=== PATIENT | male | born 1940 | race Caucasian/White ===

== ENCOUNTER → 2016-08-01 | Outpatient (CLI) | payer OTHER ==
[~2016-08-01] MED LIST: ASPI81TA82 PO; BACT800T5 PO; CEPH500C3 PO; NORV2.5T11 PO; SERT100 PO; SYMB160A INH
--- NOTE | 2016-08-05 09:31 | RSPPFT ---
DATE OF PROCEDURE: 08/01/16 COMMENTS: VOLUMES DYNAMIC: FVC and FEV1 moderately reduced. STATIC: TLC normal; FRC mildly increased; RV severely increased. FLOWS: FEV1% moderately reduced; FEF 25-75 severely reduced. DIFFUSION: Moderately reduced. FLOW VOLUME LOOP: Pattern of variable intrathoracic airways obstruction. IMPRESSION: Moderate to severe obstructive lung disease with reduction in diffusion and hyperinflation consistent with emphysema. Airways resistance is increased. There is significant improvement post-bronchodilator.
== END ==
LOC: PHRSP 10:05
PROVIDERS: ATTEND Internal Medicine
DX: J44.9 Chronic obstructive pulmonary disease, unspecified (principal)
CPT/HCPCS: 94060; 94620; 94726; 94729

== ENCOUNTER 2017-05-27 15:59 | Observation (INO) | payer OTHER ==
[~2017-05-27] VITALS: Ht 185.4 cm; Wt 73.3 kg
[2017-05-27] VITALS (9 sets, daily range): BP systolic 114–171; BP diastolic 62–79; PULSE 76–91; RESP 16–20; TEMP 98.3–101.9; O2SAT 94–98
[2017-05-27] MEDS ORDERED: ACETAMINOPHEN 325 MG TAB PO ONE (16:15)
[2017-05-27] MEDS: RESP: ALBUTEROL 2.5 MG/IPRATROPIUM 0.5 MG NEB (SCH) INH ×2 (16:27→19:18)
--- NOTE | 2017-05-27 16:29 | PD ---
HPI Chief Complaint: Respiratory Symptoms Time Seen by Provider: 16:02 Travel History International Travel<30 days: No Contact w/Intl Traveler<30days: No Traveled to known affect area: No History of Present Illness HPI 76-year-old male complains of fever, cough and congestion, wheezing and shortness of breath. Patient has history of COPD. Patient states that he has progressive shortness of breath for the past 3 months. Patient states that the symptoms got worse for the past week. Patient was seen by personal physician Dr. Troy Butt, is project manager during the past week. Patient states that he had chest x-ray done however does not know the results of that. Patient states that he was given prescription for antibiotic. Patient does not know the name of the antibiotic. Patient states that he has persistent symptoms despite taking the medication. Patient complains of intermittent left-sided chest wall pain sharp pain for the past several days. Patient states the pain is worse with deep inspiration. Patient denies abdominal pain. Patient denies any nausea vomiting diarrhea. EMS was called. Patient was given albuterol treatment 1 and Solu-Medrol 125 mg IV on with the ED. patient states that he uses albuterol nebulizer treatment at home about once a day or twice a day. Last albuterol treatment at home was last night. PFSH Past Medical History Depression: Yes COPD: Yes Diminished Hearing: No Hypertension: Yes Musculoskeletal: Yes Respiratory: Yes (COPD) Social History Alcohol Use: Yes (5-6BEER/DAY) Tobacco Use: No Substance Use: No Allergies-Medications (Allergen,Severity, Reaction): Coded Allergies: lorazepam (Unverified Allergy, Severe, AGGRESSIVE, 05/27/17) morphine (Unverified Allergy, Intermediate, RASH, 05/27/17) Reported Meds & Prescriptions Reported Meds & Active Scripts Active Reported Albuterol Neb (Albuterol Sulfate) Unknown Strength Neb Unknown Dose NEB Q4HR NEB PRN Aspirin EC (Aspirin) 81 Mg Tabdr 81 Mg PO DAILY [antibotic] Unknown Strength Unknown Dose PO BID Norvasc (Amlodipine Besylate) 2.5 Mg Tab 2.5 Mg PO DAILY Symbicort Inh (Budesonide/Formoterol Fumarate) 160-4.5 Mcg/Act Aero 2 Puff INH Q12HR Review of Systems General / Constitutional: No: Fever Eyes: No: Visual changes HENT: No: Headaches Cardiovascular: Positive: Chest Pain or Discomfort Respiratory: Positive: Cough, Shortness of Breath, Wheezing Gastrointestinal: No: Abdominal Pain Genitourinary: No: Dysuria Musculoskeletal: No: Pain Skin: No Rash Neurologic: No: Weakness Psychiatric: No: Depression Endocrine: No: Polydipsia Hematologic/Lymphatic: No: Easy Bruising Physical Exam Narrative GENERAL: Well-nourished, well-developed patient. SKIN: Focused skin assessment warm/dry. HEAD: Normocephalic. EYES: No scleral icterus. No injection or drainage. NECK: Supple, trachea midline. No JVD or lymphadenopathy. CARDIOVASCULAR: Regular rate and rhythm without murmurs, gallops, or rubs. RESPIRATORY: Breath sounds equal bilaterally. No accessory muscle use. Patient has moderate expiratory wheezes bilaterally. Patient has rhonchi bibasilar. GASTROINTESTINAL: Abdomen soft, non-tender, nondistended. MUSCULOSKELETAL: No cyanosis, or edema. BACK: Nontender without obvious deformity. No CVA tenderness. Neurologic exam normal. Data Data Last Documented VS Vital Signs Date Time Temp Pulse Resp B/P (MAP) Pulse Ox O2 Delivery O2 Flow Rate FiO2 05/27/17 16:33 83 20 98 Nasal Cannula 2.00 05/27/17 16:30 05/27/17 16:30 101.9 05/27/17 16:25 21 Orders Orders Complete Blood Count With Diff (05/27/17 16:08) Comprehensive Metabolic Panel (05/27/17 16:08) B-Type Natriuretic Peptide (05/27/17 16:08) Act Partial Throm Time (Ptt) (05/27/17 16:08) Prothrombin Time / Inr (Pt) (05/27/17 16:08) Urinalysis - C+S If Indicated (05/27/17 16:08) Influenzae A/B Antigen (05/27/17 16:08) Blood Culture (05/27/17 16:08) Iv Access Insert/Monitor (05/27/17 16:08) Electrocardiogram (05/27/17 16:08) Ecg Monitoring (05/27/17 16:08) Oximetry (05/27/17 16:08) Oxygen Administration (05/27/17 16:08) Chest, Single Ap (05/27/17 16:08) Sodium Chloride 0.9% Flush (Ns Flush) (05/27/17 16:15) Albuterol-Ipratropium Neb (Duoneb Neb) (05/27/17 16:15) Acetaminophen (Tylenol) (05/27/17 16:15) Lactic Acid (05/27/17 16:08) Cefepime Inj (Maxipime Inj) (05/27/17 17:00) Azithromycin Inj (Zithromax Inj) (05/27/17 17:00) Labs Laboratory Tests Test 05/27/17 16:43 05/27/17 17:00 White Blood Count 7.9 TH/MM3 Red Blood Count 3.75 MIL/MM3 Hemoglobin 12.6 GM/DL Hematocrit 37.1 % Mean Corpuscular Volume 99.0 FL Mean Corpuscular Hemoglobin 33.7 PG Mean Corpuscular Hemoglobin Concent 34.1 % Red Cell Distribution Width 13.7 % Platelet Count 214 TH/MM3 Mean Platelet Volume 8.6 FL Neutrophils (%) (Auto) 74.8 % Lymphocytes (%) (Auto) 12.0 % Monocytes (%) (Auto) 9.8 % Eosinophils (%) (Auto) 1.3 % Basophils (%) (Auto) 2.1 % Neutrophils # (Auto) 5.9 TH/MM3 Lymphocytes # (Auto) 0.9 TH/MM3 Monocytes # (Auto) 0.8 TH/MM3 Eosinophils # (Auto) 0.1 TH/MM3 Basophils # (Auto) 0.2 TH/MM3 CBC Comment DIFF FINAL Differential Comment Blood Urea Nitrogen 27 MG/DL Creatinine 1.10 MG/DL Random Glucose 113 MG/DL Total Protein 7.1 GM/DL Albumin 3.3 GM/DL Calcium Level 8.7 MG/DL Alkaline Phosphatase 101 U/L Aspartate Amino Transf (AST/SGOT) 48 U/L Alanine Aminotransferase (ALT/SGPT) 35 U/L Total Bilirubin 0.6 MG/DL Sodium Level 140 MEQ/L Potassium Level 4.0 MEQ/L Chloride Level 108 MEQ/L Carbon Dioxide Level 25.3 MEQ/L Anion Gap 7 MEQ/L Estimat Glomerular Filtration Rate 65 ML/MIN Lactic Acid Level 1.0 mmol/L B-Type Natriuretic Peptide 389 PG/ML Urine Collection Type VOIDED Urine Color YELLOW Urine Turbidity CLEAR Urine pH 6.0 Urine Specific [place] 1.020 Urine Protein NEG mg/dL Urine Glucose (UA) NEG mg/dL Urine Ketones NEG mg/dL Urine Occult Blood NEG Urine Nitrite NEG Urine Bilirubin NEG Urine Urobilinogen 2.0 MG/DL Urine Leukocyte Esterase NEG Urine WBC 0-2 /hpf Urine Squamous Epithelial Cells 0-5 /hpf Microscopic Urinalysis Comment CULT NOT INDICATED Urine Collection Time 1700 [facility] Medical Decision Making Medical Screen Exam Complete: Yes Emergency Medical Condition: Yes Interpretation(s) 1730 p.m. Last Impressions Chest X-Ray 05/27/17 1608 Signed Impressions: Service Date/Time: Saturday, May 27, 2017 16:22 - CONCLUSION: COPD and pleural calcifications. No acute abnormality is identified. Donald Pearson MD 1730 p.m. CBC with WBC 7.9. Hemoglobin 12.6 hematocrit 37.1. 74 neutrophil. BUN 27. GFR 65. Lactic acid 1.0. BNP 389. UA is negative. Differential Diagnosis Differential diagnosis including acute exacerbation COPD, bronchitis, pneumonia. Narrative Course 76-year-old male with coughing congestion wheezing shortness of breath and fever. History of COPD. Albuterol with Atrovent unit dose treatment 2. Patient was given [address] the [address] to the ED. Patient was given Solu- Medrol 125 mg by EMS on the way to ED. Cefepime 1 g IV. Zithromax 500 mg IV. Diagnosis Primary Impression: COPD with acute exacerbation Additional Impression: Bronchitis Admitting Information Admitting Physician Requests: Valentín Ramirez MD May 27, 2017 16:29
--- NOTE | 2017-05-27 16:43 | RADRPT ---
EXAM DATE/TIME: 05/27/2017 16:22 [facility] COMPARISON: FOOT RIGHT COMPLETE ([id number]), July 21, 2015, 14:22. INDICATIONS : Short of breath, cough, fever, chest pains MEDICAL HISTORY : Chronic obstructive pulmonary disease. SURGICAL HISTORY : None. ENCOUNTER: Initial ACUITY: 2 months PAIN SCORE: 10/10 LOCATION: Bilateral chest FINDINGS: There are chronic interstitial changes and hyperinflation consistent with COPD. There is pleural calc ification seen bilaterally. The heart is normal in size. There is mild dilation of the ascending aorta and arch. The visualized bony structures are grossly intact. CONCLUSION: COPD and pleural calcifications. No acute abnormality is identified. Donald Pearson MD on May 27, 2017 at 16:40 Board Certified Radiologist. This report was verified electronically.
[2017-05-27] MEDS ORDERED: CEFEPIME INJ 1,000 MG in SODIUM CHLORIDE 0.9% INJ 100 ML IV ONE (17:00)
[2017-05-27] MEDS ORDERED: AZITHROMYCIN INJ 500 MG in SODIUM CHLOR 0.9% 250 ML INJ 250 ML IV ONE (17:00)
[2017-05-27 17:11] LABS: AUTOMATED NEUTROPHIL # 5.9 TH/MM3 (1.8-7.7); BASOPHIL # 0.2 TH/MM3 (0-0.2); BASOPHIL % 2.1 % (0.0-2.0); CHLORIDE 108 MEQ/L (98-107); EOSINOPHIL # 0.1 TH/MM3 (0-0.4); EOSINOPHIL % 1.3 % (0.0-4.0); HEMATOCRIT 37.1 % (39.0-51.0); HEMOGLOBIN 12.6 GM/DL (13.0-17.0); LYMPHOCYTE # 0.9 TH/MM3 (1.0-4.8); MEAN CORPUSCULAR HEMOGLOBIN 33.7 PG (27.0-34.0); MEAN CORPUSCULAR HGB CONC 34.1 % (32.0-36.0); MEAN PLATELET VOLUME 8.6 FL (7.0-11.0); MONO % 9.8 % (0.0-8.0); MONOCYTE # 0.8 TH/MM3 (0-0.9); NEUT % 74.8 % (16.0-70.0); PLATELET COUNT 214 TH/MM3 (150-450); RED BLOOD COUNT 3.75 MIL/MM3 (4.50-5.90); RED CELL DISTRIBUTION WIDTH 13.7 % (11.6-17.2); SODIUM (NA) 140 MEQ/L (136-145); WHITE BLOOD COUNT 7.9 TH/MM3 (4.0-11.0)
[2017-05-27 17:14] LABS: CALCIUM 8.7 MG/DL (8.5-10.1)
[2017-05-27 17:14] LABS: BILIRUBIN, URINE NEG (NEG); BLOOD, URINE NEG (NEG); GLUCOSE,URINE NEG (NEG); KETONE, URINE NEG (NEG); NITRITE,URINE NEG (NEG); URINE COLOR YELLOW (YELLW/STRAW); URINE LEUKOCYTE ESTERASE NEG (NEG)
[2017-05-27 17:15] LABS: ALBUMIN 3.3 GM/DL (3.4-5.0); BICARBONATE 25.3 MEQ/L (21.0-32.0); BLOOD UREA NITROGEN 27 MG/DL (7-18); GLUCOSE,RANDOM 113 MG/DL (74-106)
[2017-05-27] MEDS ORDERED: NORV2.5T PO (17:15)
[2017-05-27] MEDS ORDERED: SYMB160A INH (17:15)
[2017-05-27] MEDS ORDERED: ALBU0.63 NEB (17:17)
[2017-05-27] MEDS ORDERED: ANTIBOTIC PO (17:17)
[2017-05-27] MEDS ORDERED: ASPI81TA23 PO (17:17)
[2017-05-27 17:18] LABS: ALT (GPT) 35 U/L (12-78); AST (GOT) 48 U/L (15-37); GLOMERULAR FILTRATION RATE 65 ML/MIN (>89)
[2017-05-27 17:19] LABS: TOTAL BILIRUBIN ADULT 0.6 MG/DL (0.2-1.0); TOTAL PROTEIN 7.1 GM/DL (6.4-8.2)
[2017-05-27 17:21] LABS: ALKALINE PHOSPHATASE 101 U/L (45-117)
[2017-05-27] MEDS: SODIUM CHLORIDE 0.9% FLUSH 10 ML FLUSH IVF PRN ×2 (17:29→18:25)
[2017-05-27 17:32] LABS: SQUAMOUS EPITHELIAL CELL URINE 0-5 /hpf (0-5); WBC, URINE 0-2 /hpf (0-5)
[2017-05-27 17:43] LABS: INTERNATIONAL NORMALIZED RATIO 1.1 RATIO; PROTHROMBIN TIME - PATIENT 10.7 SEC (9.8-11.6)
--- NOTE | 2017-05-27 18:27 | HHI.HP ---
[facility] Ricki Maguire MD Admission Diagnosis Acute exacerbation COPD. Bronchitis. Diagnoses: (1) Sepsis (2) Febrile illness Diagnosis: Principal (3) Bronchitis Diagnosis: Principal (4) Failure of outpatient treatment Diagnosis: Principal Chief Complaint: Cough, congestion, fever Travel History International Travel<30 Days: No Contact w/Intl Traveler <30 Da: No Traveled to Known Affected Are: No Sepsis Criteria SIRS Criteria (2 or more): Temp > 100.9 or < 96.8, WBC > 48278, < 4000 or > 10 % bands Sepsis Criteria (SIRS+source): Infect source susp/known History of Present Illness 76-year-old male with known history of hypertension, chronic obstructive lung disease who presented to the hospital because of intractable cough, fever. Patient states that since March his son gave him some kind of infection that he has not been able to get rid of. He has been having intermittent fever, cough, congestion, sinus congestion. Patient went to his assistant director of residence life Dr. Butt on had a chest x-ray performed, he does not know the results of it. He is given antibiotics which he describes as being oval horse pills, he does not know the name of. He is taking them for approximately 2 days and he has not gotten better. He had a episode today where he had body retching coughing with rigors and because of that he came to emergency department for evaluation. Patient had workup done emergency department found have a fever of 101.9. There is no indication of any leukocytosis. No lactic acidosis. Chest x-ray does not indicate any acute etiology. Because patient failed outpatient management as recommended by the ER physician that the patient be observed in the hospital for further evaluation and management. Review of Systems Constitutional: COMPLAINS OF: Fever, Chills Respiratory: COMPLAINS OF: Cough, Sputum production, Shortness of breath Except as stated in HPI: all other systems reviewed are Neg Past Family Social History Past Medical History Hypertension Chronic affective pulmonary disease Past Surgical History 2 back surgeries 1 cervical spine surgery Bilateral carpal tunnel surgery Right knee surgery Right hip replacement Reported Medications Reported Meds & Active Scripts Active Reported Albuterol Neb (Albuterol Sulfate) Unknown Strength Neb Unknown Dose NEB Q4HR NEB PRN Aspirin EC (Aspirin) 81 Mg Tabdr 81 Mg PO DAILY [antibotic] Unknown Strength Unknown Dose PO BID Norvasc (Amlodipine Besylate) 2.5 Mg Tab 2.5 Mg PO DAILY Symbicort Inh (Budesonide/Formoterol Fumarate) 160-4.5 Mcg/Act Aero 2 Puff INH Q12HR Allergies: Coded Allergies: lorazepam (Unverified Allergy, Severe, AGGRESSIVE, 05/27/17) morphine (Unverified Allergy, Intermediate, RASH, 05/27/17) Family History Reviewed is significant for his mother from cancer, patient does not know exactly what kind of cancer. Father was a chronic smoker and from cancer. Brother at age 50 secondary to congenital heart problems. Sister from brain cancer Social History Patient quit smoking in the s, prior to that he smoked 2 pack a cigarettes a day since he was 19 years old. He does continue to drink alcohol daily at approximate 6 pack of beer. He does smoke marijuana regularly Physical Exam Vital Signs Vital Signs Date Time Temp Pulse Resp B/P (MAP) Pulse Ox O2 Delivery O2 Flow Rate FiO2 05/27/17 17:44 99.6 91 16 153/68 (96) 96 Nasal Cannula 2.00 05/27/17 16:33 83 20 98 Nasal Cannula 2.00 05/27/17 16:30 18 96 Nasal Cannula 2.00 05/27/17 16:30 96 Nasal Cannula 2.00 05/27/17 16:30 101.9 81 20 171/70 (103) 97 Nasal Cannula 2.00 05/27/17 16:25 94 21 05/27/17 16:23 101.7 84 20 164/79 (107) 96 Physical Exam GENERAL: Well-developed, well-nourished, in no acute distress. alert and orientated. Patient mildly diaphoretic from breaking a fever HEENT: Head is normocephalic without any lesions or masses noted. Facial features are symmetric. Eyes: Pupils equal round reactive to light. Extraocular muscles are intact. Conjunctivae were clear. Oropharyngeal: Pharynx without any erythema edema. Tongue is midline without deviation. Buccal mucosa is moist without any masses or lesions NECK: Supple without any masses. Trachea midline no deviation. No JVD, no bruits are appreciated CARDIAC: Regular rhythm, regular rate. S1/S2 are heard. No murmurs gallops or rubs. LUNGS: Clear to auscultation bilaterally. No wheeze, rhonchi or rales. No use of accessory muscles on inspiration or expiration. ABDOMEN: Soft, nontender. Nondistended. Bowel sounds heard in all 4 quadrants. No organomegaly or masses. Negative rebound, negative guarding EXTREMITIES: No edema, pulses are equal bilaterally. No cyanosis or clubbing NEUROLOGY: Mood and affect appear appropriate. Cranial nerves II through XII grossly intact. Muscle strength 5/5 in upper and lower extremities bilaterally. Deep tendon reflexes are 2+ in upper and lower extremities bilaterally. Laboratory Laboratory Tests Test 05/27/17 16:43 05/27/17 17:00 White Blood Count 7.9 Red Blood Count 3.75 Hemoglobin 12.6 Hematocrit 37.1 Mean Corpuscular Volume 99.0 Mean Corpuscular Hemoglobin 33.7 Mean Corpuscular Hemoglobin Concent 34.1 Red Cell Distribution Width 13.7 Platelet Count 214 Mean Platelet Volume 8.6 Neutrophils (%) (Auto) 74.8 Lymphocytes (%) (Auto) 12.0 Monocytes (%) (Auto) 9.8 Eosinophils (%) (Auto) 1.3 Basophils (%) (Auto) 2.1 Neutrophils # (Auto) 5.9 Lymphocytes # (Auto) 0.9 Monocytes # (Auto) 0.8 Eosinophils # (Auto) 0.1 Basophils # (Auto) 0.2 CBC Comment DIFF FINAL Differential Comment Prothrombin Time 10.7 Prothromb Time International Ratio 1.1 Activated Partial Thromboplast Time 32.9 Blood Urea Nitrogen 27 Creatinine 1.10 Random Glucose 113 Total Protein 7.1 Albumin 3.3 Calcium Level 8.7 Alkaline Phosphatase 101 Aspartate Amino Transf (AST/SGOT) 48 Alanine Aminotransferase (ALT/SGPT) 35 Total Bilirubin 0.6 Sodium Level 140 Potassium Level 4.0 Chloride Level 108 Carbon Dioxide Level 25.3 Anion Gap 7 Estimat Glomerular Filtration Rate 65 Lactic Acid Level 1.0 B-Type Natriuretic Peptide 389 Urine Collection Type VOIDED Urine Color YELLOW Urine Turbidity CLEAR Urine pH 6.0 Urine Specific [place] 1.020 Urine Protein NEG Urine Glucose (UA) NEG Urine Ketones NEG Urine Occult Blood NEG Urine Nitrite NEG Urine Bilirubin NEG Urine Urobilinogen 2.0 Urine Leukocyte Esterase NEG Urine WBC 0-2 Urine Squamous Epithelial Cells 0-5 Microscopic Urinalysis Comment CULT NOT INDICATED Urine Collection Time 1700 Date/Time Source Procedure Growth Status 05/27/17 16:55 Blood Peripheral Aerobic Blood Culture Pending Received 05/27/17 16:55 Blood Peripheral Anaerobic Blood Culture Pending Received 05/27/17 16:35 Nasal Washing Influenza Types A,B Antigen (EVAN) Pending Received Result Diagram: 05/27/17 1643 05/27/17 1643 Imaging Last Impressions Chest X-Ray 05/27/17 1608 Signed Impressions: Service Date/Time: Saturday, May 27, 2017 16:22 - CONCLUSION: COPD and pleural calcifications. No acute abnormality is identified. MD Greg Luong VTE Risk Assessment Caprini VTE Risk Assessment: Mod/High Risk (score >= 2) Caprini Risk Assessment Model Point Value = 1 Point Value = 2 Point Value = 3 Point Value = 5 Age 41-60 Minor surgery BMI > 25 kg/m2 Swollen legs Varicose veins or History of unexplained or recurrent spontaneous Oral contraceptives or hormone replacement Sepsis (< 1 month) Serious lung disease, including pneumonia (< 1 month) Abnormal pulmonary function Acute myocardial infarction Congestive heart failure (< 1 month) History of inflammatory bowel disease Medical patient at bed rest Age 61-74 Arthroscopic surgery Major open surgery (> 45 min) Laparoscopic surgery (> 45 min) Malignancy Confined to bed (> 72 hours) Immobilizing plaster cast Central venous access Age >= 75 History of VTE Family history of VTE Factor V Leiden Prothrombin [id number] Lupus anticoagulant Anticardiolipin antibodies Elevated serum homocysteine Heparin-induced thrombocytopenia Other congenital or acquired thrombophilia Stroke (< 1 month) Elective arthroplasty Hip, pelvis, or leg fracture Acute spinal cord injury (< 1 month) Prophylaxis Regimen Total Risk Factor Score Risk Level Prophylaxis Regimen 0-1 Low Early ambulation 2 Moderate Order ONE of the following: *Sequential Compression Device (SCD) *Heparin 5000 units SQ BID 3-4 Higher Order ONE of the following medications: *Heparin 5000 units SQ TID *Enoxaparin/Lovenox 40 mg SQ daily (WT < 150 kg, CrCl > 30 mL/min) *Enoxaparin/Lovenox 30 mg SQ daily (WT < 150 kg, CrCl > 10-29 mL/min) *Enoxaparin/Lovenox 30 mg SQ BID (WT < 150 kg, CrCl > 30 mL/min) AND/OR *Sequential Compression Device (SCD) 5 or more Highest Order ONE of the following medications: *Heparin 5000 units SQ TID (Preferred with Epidurals) *Enoxaparin/Lovenox 40 mg SQ daily (WT < 150 kg, CrCl > 30 mL/min) *Enoxaparin/Lovenox 30 mg SQ daily (WT < 150 kg, CrCl > 10-29 mL/min) *Enoxaparin/Lovenox 30 mg SQ BID (WT < 150 kg, CrCl > 30 mL/min) AND *Sequential Compression Device (SCD) Assessment and Plan Assessment and Plan Sepsis Patient presented with Febrile illness, tachycardia, upper respiratory infection, bronchitis versus viral infection, failed outpatient treatment Chest x-ray does not indicate any acute abnormality Awaiting influenza testing Blood cultures are pending Obtain sputum culture Patient was given cefepime and Zithromax emergency department, will continue at this time Chronic obstructive pulmonary disease Continue O2 supplementation maintain O2 sats greater 92% Continue Symbicort Continue nebulizer treatments every 6 hours while awake and every 2 hours Hypertension home medications have been continued Vasotec/clonidine as needed DVT prevention subcutaneous heparin Michael Brower May 27, 2017 18:27
[2017-05-27] MEDS ORDERED: TEMAZEPAM 15 MG CAP PO PRN (18:30)
[2017-05-27] MEDS ORDERED: DOCUSATE SODIUM 100 MG CAP PO PRN (18:30)
[2017-05-27] MEDS ORDERED: SODIUM CHLORIDE 0.9% FLUSH 10 ML FLUSH IV FLUSH PRN (18:30)
[2017-05-27] MEDS ORDERED: ENALAPRILAT 1.25 MG/ML VIAL IV PUSH PRN (18:30)
[2017-05-27] MEDS ORDERED: MAGNESIUM HYDROXIDE SUSP 30 ML CUP PO PRN (18:30)
[2017-05-27] MEDS ORDERED: ACETAMINOPHEN 325 MG TAB PO PRN (18:30)
[2017-05-27] MEDS ORDERED: ONDANSETRON HCL 4 MG/2 ML VIAL IV PUSH PRN (18:30)
[2017-05-27] MEDS ORDERED: CALCIUM CARBONATE 500 MG CHEWABLE TAB CHEW PRN (18:30)
[2017-05-27] MEDS ORDERED: cloNIDine HCL 0.1 MG TAB PO PRN (18:30)
[2017-05-27] MEDS ORDERED: guaiFENesin/CODEINE SYRUP 200 MG/20 MG/10 ML CUP PO PRN (18:30)
[2017-05-27] MEDS ORDERED: PILL SPLITTER OTHER PRN (18:45)
[2017-05-27] MEDS ORDERED: RESP: ALBUTEROL 2.5 MG/IPRATROPIUM 0.5 MG NEB (PRN) NEB (19:00)
[2017-05-27] MEDS: SODIUM CHLOR 0.9% 1000 ML INJ 1,000 ML IV SCH (19:01)
[2017-05-27] MEDS: SODIUM CHLORIDE 0.9% FLUSH 10 ML FLUSH IV FLUSH SCH (21:00)
[2017-05-27] MEDS: BUDESONIDE-FORMOTEROL 160/4.5 MCG INHALER INH SCH (21:26)
[2017-05-27] MEDS: guaiFENesin E.R. 600 MG TAB PO SCH (21:26)
[2017-05-27] MEDS: HEPARIN SODIUM - SQ 10,000 UNITS/ML VIAL SQ SCH (21:27)
[2017-05-28] VITALS (11 sets, daily range): BP systolic 133–178; BP diastolic 56–86; PULSE 60–84; RESP 18–36; TEMP 97–98.3; O2SAT 93–97
[2017-05-28] MEDS: CEFEPIME INJ 2,000 MG in SODIUM CHLORIDE 0.9% INJ 100 ML IV SCH ×2 (04:35→16:20)
[2017-05-28] MEDS: SODIUM CHLOR 0.9% 1000 ML INJ 1,000 ML IV SCH ×2 (04:35→20:48)
[2017-05-28 05:30] LABS: AUTOMATED NEUTROPHIL # 6.7 TH/MM3 (1.8-7.7); BASOPHIL # 0.1 TH/MM3 (0-0.2); BASOPHIL % 1.1 % (0.0-2.0); EOSINOPHIL % 0.1 % (0.0-4.0); HEMATOCRIT 34.6 % (39.0-51.0); HEMOGLOBIN 11.5 GM/DL (13.0-17.0); LYMPH % 6.1 % (9.0-44.0); LYMPHOCYTE # 0.5 TH/MM3 (1.0-4.8); MEAN CORPUSCULAR HEMOGLOBIN 33.7 PG (27.0-34.0); MEAN CORPUSCULAR HGB CONC 33.3 % (32.0-36.0); MEAN PLATELET VOLUME 8.5 FL (7.0-11.0); MONO % 2.7 % (0.0-8.0); MONOCYTE # 0.2 TH/MM3 (0-0.9); PLATELET COUNT 183 TH/MM3 (150-450); RED BLOOD COUNT 3.42 MIL/MM3 (4.50-5.90); RED CELL DISTRIBUTION WIDTH 13.1 % (11.6-17.2); WHITE BLOOD COUNT 7.5 TH/MM3 (4.0-11.0)
[2017-05-28 05:37] LABS: CALCIUM 8.4 MG/DL (8.5-10.1)
[2017-05-28 05:38] LABS: BICARBONATE 24.1 MEQ/L (21.0-32.0)
[2017-05-28 05:41] LABS: CREATININE 1.1 MG/DL (0.60-1.30)
[2017-05-28] MEDS: RESP: ALBUTEROL 2.5 MG/IPRATROPIUM 0.5 MG NEB (SCH) INH ×3 (07:31→20:19)
[2017-05-28] MEDS: SODIUM CHLORIDE 0.9% FLUSH 10 ML FLUSH IV FLUSH SCH ×2 (09:00→20:44)
[2017-05-28] MEDS: amLODIPine BESYLATE 5 MG TAB PO SCH (09:25)
[2017-05-28] MEDS: AZITHROMYCIN 250 MG TAB PO SCH (09:25)
[2017-05-28] MEDS: HEPARIN SODIUM - SQ 10,000 UNITS/ML VIAL SQ SCH ×2 (09:25→20:45)
[2017-05-28] MEDS: ASPIRIN EC 81 MG TABEC PO SCH (09:25)
[2017-05-28] MEDS: guaiFENesin E.R. 600 MG TAB PO SCH ×2 (09:25→20:46)
[2017-05-28] MEDS ORDERED: GLUCAGON 1 MG/ML VIAL OTHER PRN (10:00)
[2017-05-28] MEDS ORDERED: DEXTROSE 50% IN WATER 50 ML VIAL(D50) IV PUSH PRN (10:00)
[2017-05-28] MEDS: predniSONE 20 MG TAB PO SCH ×2 (11:01→20:46)
--- NOTE | 2017-05-28 11:35 | HHI.PR ---
Subjective Remarks Patient seen and examined today for follow-up on upper respiratory infection, sepsis. Patient is improving slowly. Patient has more complaints today which he has been experiencing chronically. He does indicate that he is been having chronic dysphasia with swallowing of solid foods. He states that he chokes on taking pills all the time. He has never had any workup done for this. He states that Dr. lewis recommended him to get workup done. Patient remains afebrile Objective Vitals Vital Signs Date Time Temp Pulse Resp B/P (MAP) Pulse Ox O2 Delivery O2 Flow Rate FiO2 05/28/17 10:00 78 25 160/77 (104) 93 05/28/17 09:00 84 18 146/61 (89) 94 05/28/17 08:00 76 28 166/73 (104) 94 05/28/17 08:00 78 05/28/17 07:33 96 21 05/28/17 07:00 98.1 60 35 141/64 (89) 93 05/28/17 04:00 97.4 64 20 140/63 (88) 93 05/28/17 04:00 64 05/28/17 00:00 98.3 66 36 133/56 (81) 94 05/28/17 00:00 66 05/27/17 21:00 76 05/27/17 21:00 98.3 76 17 144/62 (89) 96 05/27/17 20:40 84 18 96 Nasal Cannula 2.00 05/27/17 20:39 84 18 139/66 (90) 96 Nasal Cannula 2.00 05/27/17 19:31 90 18 138/74 (95) 97 Nasal Cannula 2.00 05/27/17 19:18 98 Nasal Cannula 1.00 05/27/17 18:30 77 18 97 Nasal Cannula 2.00 05/27/17 18:30 80 16 114/74 (87) 97 Nasal Cannula 2.00 05/27/17 17:44 99.6 91 16 153/68 (96) 96 Nasal Cannula 2.00 05/27/17 16:33 83 20 98 Nasal Cannula 2.00 05/27/17 16:30 18 96 Nasal Cannula 2.00 05/27/17 16:30 96 Nasal Cannula 2.00 05/27/17 16:30 101.9 81 20 171/70 (103) 97 Nasal Cannula 2.00 05/27/17 16:25 94 21 05/27/17 16:23 101.7 84 20 164/79 (107) 96 I/O 05/27/17 05/27/17 05/27/17 05/28/17 05/28/17 05/28/17 07:00 15:00 23:00 07:00 15:00 23:00 Intake Total 350 ml 1235 ml Output Total 350 ml Balance 350 ml 885 ml Intake IV Total 350 ml 1235 ml Output Urine Total 350 ml Result Diagram: 05/28/17 0510 05/28/17 0510 Objective Remarks GENERAL: Well-developed, well-nourished, in no acute distress. alert and orientated. HEENT: Head is normocephalic without any lesions or masses noted. Facial features are symmetric. Eyes: Extraocular muscles are intact. Conjunctivae were clear. NECK: Supple without any masses. Trachea midline no deviation. No JVD, CARDIAC: Regular rhythm, regular rate. S1/S2 are heard. No murmurs gallops or rubs. LUNGS: Clear to auscultation bilaterally. No wheeze, rhonchi or rales. No use of accessory muscles on inspiration or expiration. ABDOMEN: Soft, nontender. Nondistended. Bowel sounds heard in all 4 quadrants. No organomegaly or masses. Negative rebound, negative guarding EXTREMITIES: No edema, pulses are equal bilaterally. No cyanosis or clubbing NEUROLOGY: Mood and affect appear appropriate. Cranial nerves II through XII grossly intact. Moving all extremities, speech is clear Urinary Catheter: No Vascular Central Line Catheter: No A/P Assessment and Plan Sepsis, resolved Patient presented with Febrile illness, tachycardia, upper respiratory infection, bronchitis versus viral infection, failed outpatient treatment Chest x-ray does not indicate any acute abnormality Influenza testing was negative Blood cultures negative for 1 day Sputum cultures pending Continue Mucinex Continue Robitussin-AC for cough suppression Continue cefepime and Zithromax Chronic obstructive pulmonary disease Continue O2 supplementation maintain O2 sats greater 92% Continue Symbicort Start prednisone 20 mg twice daily Continue nebulizer treatments every 6 hours while awake and every 2 hours Dysphagia Consult speech therapy for swallow evaluation Hypertension home medications have been continued Vasotec/clonidine as needed DVT prevention subcutaneous heparin Discharge Planning Discharge planning likely tomorrow if he continues to respond to treatment Michael Brower May 28, 2017 11:35
[2017-05-28] MEDS: BUDESONIDE-FORMOTEROL 160/4.5 MCG INHALER INH SCH ×2 (11:39→22:34)
[2017-05-28] MEDS: INSULIN ASPART SUPPLEMENTAL SCALE SQ SCH ×3 (12:14→20:43)
[2017-05-28 13:05] LABS: HEMOGLOBIN A1C 5.1 % (4.3-6.0)
--- NOTE | 2017-05-28 13:09 | EKG ---
Date Performed: 05/27/2017 Time Performed: 16:21:50 PTAGE: 76 years EKG: Sinus rhythm WITH SINUS ARRHYTHMIA BORDERLINE LEFT AXIS DEVIATION INCOMPLETE RIGHT BUNDLE BRANCH BLOCK BORDERLINE ECG Since PREVIOUS TRACING , no significant change noted PREVIOUS TRACIN12/17/2014 12.41 DOCTOR: Luis Spaulding Interpretating Date/Time 05/28/2017 13:08:36
[2017-05-29] VITALS: BP 133/69; PULSE 76; RESP 17; TEMP 97.5; O2SAT 94
[2017-05-29] MEDS: CEFEPIME INJ 2,000 MG in SODIUM CHLORIDE 0.9% INJ 100 ML IV SCH (05:09)
[2017-05-29] MEDS: RESP: ALBUTEROL 2.5 MG/IPRATROPIUM 0.5 MG NEB (SCH) INH (07:36)
[2017-05-29 07:37] VITALS: O2SAT 95
[2017-05-29] MEDS: INSULIN ASPART SUPPLEMENTAL SCALE SQ SCH (07:47)
[2017-05-29 07:50] VITALS: BP 152/72; PULSE 70; RESP 20; TEMP 98.3; O2SAT 99
[2017-05-29] MEDS: HEPARIN SODIUM - SQ 10,000 UNITS/ML VIAL SQ SCH (08:00)
[2017-05-29] MEDS: guaiFENesin E.R. 600 MG TAB PO SCH (09:00)
[2017-05-29] MEDS: predniSONE 20 MG TAB PO SCH (09:00)
[2017-05-29] MEDS: SODIUM CHLORIDE 0.9% FLUSH 10 ML FLUSH IV FLUSH SCH (09:00)
[2017-05-29] MEDS ORDERED: CEFU1TAB18 PO (09:21)
[2017-05-29] MEDS ORDERED: guaiFENesin ER PO (09:21)
[2017-05-29] MEDS ORDERED: MEDR4PAK PO (09:21)
[2017-05-29] MEDS ORDERED: AZIT250T3 PO (09:21)
--- NOTE | 2017-05-29 09:22 | HHI.DCPOC ---
Discharge Care Plan Diagnosis: (1) Sepsis (2) Failure of outpatient treatment (3) Febrile illness (4) COPD with acute exacerbation (5) Bronchitis Goals to Promote Your Health * To prevent worsening of your condition and complications * To maintain your health at the optimal level Directions to Meet Your Goals Take your medications as prescribed Follow your dietary instruction Follow activity as directed Keep your appointments as scheduled Take your immunizations and boosters as scheduled If your symptoms worsen call your PCP, if no PCP go to Urgent Care Center or Emergency Room Smoking is Dangerous to Your Health. Avoid second hand smoke Call the 24-hour hour crisis hotline for domestic abuse at Michael Brower May 29, 2017 09:22
--- NOTE | 2017-05-29 09:27 | HHI.DS ---
Discharge Summary Admission Date May 27, 2017 at 17:36 Discharge Date: May 29, 2017 Admitting Diagnosis Acute exacerbation COPD. Bronchitis. (1) Sepsis ICD Code: A41.9 - Sepsis, unspecified organism (2) Febrile illness ICD Code: R50.9 - Fever, unspecified Diagnosis: Principal (3) Bronchitis ICD Code: J40 - Bronchitis, not specified as acute or chronic Diagnosis: Principal Status: Acute (4) Failure of outpatient treatment ICD Code: Z78.9 - Other specified health status Diagnosis: Principal Procedures Speech therapy evaluation for swallow eval. Regular consistent diet. No further recommendations. Indicated patient may benefit from outpatient speech therapy Brief History - From Admission 76-year-old male with known history of hypertension, chronic obstructive lung disease who presented to the hospital because of intractable cough, fever. Patient states that since March his son gave him some kind of infection that he has not been able to get rid of. He has been having intermittent fever, cough, congestion, sinus congestion. Patient went to his pony edger Dr. Butt on had a chest x-ray performed, he does not know the results of it. He is given antibiotics which he describes as being oval horse pills, he does not know the name of. He is taking them for approximately 2 days and he has not gotten better. He had a episode today where he had body retching coughing with rigors and because of that he came to emergency department for evaluation. Patient had workup done emergency department found have a fever of 101.9. There is no indication of any leukocytosis. No lactic acidosis. Chest x-ray does not indicate any acute etiology. Because patient failed outpatient management as recommended by the ER physician that the patient be observed in the hospital for further evaluation and management. CBC/BMP: 05/28/17 0510 05/28/17 0510 Significant Findings Laboratory Tests Test 05/27/17 16:43 05/27/17 17:00 05/28/17 05:10 Red Blood Count 3.75 MIL/MM3 (4.50-5.90) 3.42 MIL/MM3 (4.50-5.90) Hemoglobin 12.6 GM/DL (13.0-17.0) 11.5 GM/DL (13.0-17.0) Hematocrit 37.1 % (39.0-51.0) 34.6 % (39.0-51.0) Neutrophils (%) (Auto) 74.8 % (16.0-70.0) 90.0 % (16.0-70.0) Monocytes (%) (Auto) 9.8 % (0.0-8.0) Basophils (%) (Auto) 2.1 % (0.0-2.0) Lymphocytes # (Auto) 0.9 TH/MM3 (1.0-4.8) 0.5 TH/MM3 (1.0-4.8) Activated Partial Thromboplast Time 32.9 SEC (24.3-30.1) Blood Urea Nitrogen 27 MG/DL (7-18) 29 MG/DL (7-18) Random Glucose 113 MG/DL (74-106) 215 MG/DL (74-106) Albumin 3.3 GM/DL (3.4-5.0) Aspartate Amino Transf (AST/SGOT) 48 U/L (15-37) Chloride Level 108 MEQ/L (98-107) 111 MEQ/L (98-107) Estimat Glomerular Filtration Rate 65 ML/MIN (>89) 65 ML/MIN (>89) B-Type Natriuretic Peptide 389 PG/ML (0-100) Mean Corpuscular Volume 101.0 FL (80.0-100.0) Lymphocytes (%) (Auto) 6.1 % (9.0-44.0) Calcium Level 8.4 MG/DL (8.5-10.1) Imaging Last Impressions Chest X-Ray 05/27/17 1608 Signed Impressions: Service Date/Time: Saturday, May 27, 2017 16:22 - CONCLUSION: COPD and pleural calcifications. No acute abnormality is identified. Donald Pearson MD PE at Discharge GENERAL: Well-developed, well-nourished, in no acute distress. alert and orientated. HEENT: Head is normocephalic without any lesions or masses noted. Facial features are symmetric. Eyes: Extraocular muscles are intact. Conjunctivae were clear. NECK: Supple without any masses. Trachea midline no deviation. No JVD, CARDIAC: Regular rhythm, regular rate. S1/S2 are heard. No murmurs gallops or rubs. LUNGS: Clear to auscultation bilaterally. No wheeze, rhonchi or rales. No use of accessory muscles on inspiration or expiration. ABDOMEN: Soft, nontender. Nondistended. Bowel sounds heard in all 4 quadrants. No organomegaly or masses. Negative rebound, negative guarding EXTREMITIES: No edema, pulses are equal bilaterally. No cyanosis or clubbing NEUROLOGY: Mood and affect appear appropriate. Cranial nerves II through XII grossly intact. Moving all extremities, speech is clear Hospital Course 76-year-old male with known history of COPD who presented to the hospital because of worsening respiratory symptoms, febrile illness. Patient was evaluated in the outpatient setting by Dr. Butt who did a chest x-ray on him on Monday, however did not know the results of that. Patient was started on some oval [place] pill of an antibiotic which he does not know the name of. Patient did not get any better so he came to the ER for evaluation. When the patient was emergency department he had febrile illness. He had criteria to meet sepsis with tachycardia, fever, bronchitis. Patient was admitted to the hospital with IV antibiotics to include cefepime, patient started on Zithromax p.o. He was started on Mucinex, nebulizer treatments, cultures were taken which are all unremarkable. While the patient was in the hospital he states that he has had history of chronic dysphagia with solid foods. Speech therapy was consulted and evaluated the patient and indicated that he can tolerate a regular consistent diet. No indications of further testing at this time. Patient tolerated treatment well and is no longer requiring any oxygen for supplementation. He is on room air without any desaturations. Patient does appear to be much better. Patient has been afebrile since admission to the hospital. Patient clinically improved. We will plan discharge accordingly. Pt Condition on Discharge: Stable Discharge Disposition: Discharge Home Discharge Time: > 30 minutes Discharge Instructions DIET: Follow Instructions for: Heart Healthy Diet Activities you can perform: Regular-No Restrictions Follow up Referrals: PCP Follow-up - 1 Week New Medications: Cefuroxime (Ceftin) 250 Mg Tab 250 MG PO BID for Infection for 7 Days, #14 TAB Methylprednisolone Dosepak (Medrol Dosepak) 4 Mg Dspk 4 MG PO DIRECTED, #1 DSPK 0 Refills Per Pharmacist direction Azithromycin (Azithromycin) 250 Mg Tab 250 MG PO DAILY for Infection for 3 Days, #3 TAB [guaiFENesin ER] () 600 MG TABCR 600 MG PO BID for Cough for 7 Days Continued Medications: Albuterol Neb (Albuterol Neb) Unknown Strength Neb Unknown Dose NEB Q4HR NEB PRN for SHORTNESS OF BREATH, #25 NEBULE 0 Refills Amlodipine (Norvasc) 2.5 Mg Tab 2.5 MG PO DAILY for Blood Pressure Management, #30 TAB [address] (Aspirin EC) 81 Mg Tabdr 81 MG PO DAILY, TAB 0 Refills Budesonide-Formoterol Inh (Symbicort Inh) 160-4.5 Mcg/Act Aero 2 PUFF INH Q12HR, #1 INHALER 0 Refills Discontinued Medications: [antibotic] () Unknown Strength Unknown Dose PO BID Michael Brower May 29, 2017 09:27
[2017-05-29] MEDS: AZITHROMYCIN 250 MG TAB PO SCH (10:03)
[2017-05-29] MEDS: BUDESONIDE-FORMOTEROL 160/4.5 MCG INHALER INH SCH (10:04)
[2017-05-29] MEDS: amLODIPine BESYLATE 5 MG TAB PO SCH (10:04)
[2017-05-29] MEDS: ASPIRIN EC 81 MG TABEC PO SCH (10:04)
[2017-05-29] MEDS: SODIUM CHLOR 0.9% 1000 ML INJ 1,000 ML IV SCH (10:16)
== END 2017-05-29 10:50 | disposition home or self-care (01) ==
LOC: PHED 15:59 → PHEDA 17:36 → PHICU 20:33 → PH3A 05-28 10:18
PROVIDERS: ADMIT Hospitalist; ATTEND Hospitalist
DX: A41.9 Sepsis, unspecified organism (principal); J44.1 Chronic obstructive pulmonary disease with (acute) exacerbation; J40 Bronchitis, not specified as acute or chronic; I10 Essential (primary) hypertension; R13.10 Dysphagia, unspecified; R07.89 Other chest pain
CPT/HCPCS: 71045; 80048; 80053; 81001; 82948; 83036; 83605; 83880; 85025; 85610; 85730; 87040; 87070; 87205; 87804; 92610; 93005; 94640; 94664; 96365; 96366; 96372; 96376; 99285; G0378; G8996; G8997; G8998; J0456; J0692; J1644; J1815; J7030; J7050; J7512